=== PATIENT | male | born 1955 | race Caucasian/White ===

== ENCOUNTER 2017-03-14 20:23 | Emergency (ER) | payer OTHER ==
[2017-03-14 21:33] VITALS: BP 161/101; PULSE 97; TEMP 101.5; BMI 31.6
[2017-03-14] MEDS ORDERED: HYDROCHLOROTHIAZIDE 25 MG TABLET (FP) PO ONE (22:18)
[2017-03-14] MEDS ORDERED: LISINOPRIL 20 MG TABLET (FP) PO ONE (22:20)
[2017-03-14] MEDS ORDERED: ACETAMINOPHEN 325 MG TABLET (FP) PO ONE (22:20)
--- NOTE | 2017-03-14 22:57 | PDOC ---
History of Present Illness - General Chief Complaint: Injury Stated Complaint: ANKLE PAIN Time Seen by Provider: 03/14/17 21:54 History Source: Patient Exam Limitations: No Limitations - History of Present Illness Initial Comments: 03/14/17 22:07 Pt. is a 61 y/o male hx of HTN, opioid abuse on methadone, R ankle trauma with old pinning in 1972, who presents to the ED tonight c/o r ankle pain. Pt. states that last night he noticed his ankle swell. He denies trauma, falling. States that his like swelled up with no apparent reason. He states that hurts to bear weight. Denies numbness and tingling in the foot, weakness, fatigue, lethargy, fever, chills, nausea, vomiting and diarrhea. VS Notable for a fever of 101 F Past History - Travel Traveled outside of the country in the last 30 days: No Close contact w/someone who was outside of country & ill: No - Past Medical History Allergies/Adverse Reactions: Allergies Allergy/AdvReac Type Severity Reaction Status Date / Time codeine [Codeine] Allergy Rash Verified 01/07/14 20:32 Home Medications: Ambulatory Orders Lisinopril/Hydrochlorothiazide [Lisinopril-Hctz 20-12.5 mg Tab] 1 each PO DAILY 06/07/13 Albuterol Sulfate Inhaler - [Ventolin HFA Inhaler -] 1 - 2 inh PO Q4H #1 inhaler 03/15/17 Azithromycin [Zithromax 250mg Tablets -] 250 mg PO UTDICT #6 tab 03/15/17 Prednisone [Deltasone -] 40 mg PO DAILY #10 tablet 03/15/17 Anemia: No Asthma: No Cancer: No Cardiac Disorders: No CVA: No COPD: No Dementia: No Diabetes: No GI Disorders: No (GALLSTONES; ENLARGED WALL OF GALLBLADDER) Disorders: No HTN: Yes ( LISINOPRIL/HCTZ 20/12.5 MG DAILY) Hypercholesterolemia: No Kidney Stones: Yes (tx 40 yrs ago.) Liver Disease: No Seizures: Yes (RELATED TO DRUS, LAST IN 2010) Thyroid Disease: No - Surgical History Orthopedic Surgery: Yes (RIGHT ANKLE SX IN 1971) - Reproductive History Testicular Surgery: No - Suicide/Smoking/Psychosocial Hx Smoking Status: Yes Smoking History: Current every day smoker Have you smoked in the past 12 months: Yes Number of Cigarettes Smoked Daily: 10 Cigars Per Day: 0 Information on smoking cessation initiated: No 'Breaking Loose' booklet given: 12/13/13 Hx Alcohol Use: No Drug/Substance Use Hx: Yes Substance Use Type: Heroin, Tranquilizers Hx Substance Use Treatment: Yes (05/31 [facility]) Review of Systems - Review of Systems Able to Perform ROS?: Yes Comments:: 03/15/17 01:58 CONSTITUTIONAL: Present: Fever Absent: chills, diaphoresis, generalized weakness, malaise, loss of appetite HEENT: Absent: rhinorrhea, nasal congestion, throat pain, throat swelling, difficulty swallowing, mouth swelling, ear pain, eye pain, visual Changes CARDIOVASCULAR: Absent: chest pain, loss of consciousness, palpitations, irregular heart rate, peripheral edema RESPIRATORY: Present: cough Absent: cough, shortness of breath, dyspnea with exertion, orthopnea, wheezing, stridor, hemoptysis GASTROINTESTINAL: Absent: abdominal pain, abdominal distension, nausea, vomiting, diarrhea, constipation, melena, hematochezia GENITOURINARY: Absent: dysuria, frequency, urgency, hesitancy, hematuria, flank pain, genital pain MUSCULOSKELETAL: Present: R ankle swelling, pain Absent: arthralgia SKIN: Absent: rash, itching, pallor HEMATOLOGIC/IMMUNOLOGIC: Absent: easy bleeding, easy bruising, lymphadenopathy, frequent infections ENDOCRINE: Absent: unexplained weight gain, unexplained weight loss, heat intolerance, cold intolerance NEUROLOGIC: Absent: headache, focal weakness or paresthesias, dizziness, unsteady gait, seizure, mental status changes, bladder or bowel incontinence PSYCHIATRIC: Absent: anxiety, depression, suicidal or homicidal ideation, hallucinations. Is the patient limited [place] proficient: No *Physical Exam - Vital Signs Last Vital Signs Temp Pulse Resp BP Pulse Ox 101.5 F H 97 H 20 161/101 94 L 03/14/17 21:20 03/14/17 21:20 03/14/17 21:20 03/14/17 21:20 03/14/17 21:20 - Physical Exam Comments: 03/15/17 07:26 GENERAL: Well developed, well nourished. Awake and alert. No acute distress. HEENT: Normocephalic, atraumatic. PERRLA, EOMI. No conjunctival pallor. Sclera are non- icteric. Moist mucous membranes. Oropharynx is clear. NECK: Supple. Full ROM. No JVD. Carotid pulses 2+ and symmetric, without bruits. No thyromegaly. No lymphadenopathy. CARDIOVASCULAR: Regular rate and rhythm. No murmurs, rubs, or gallops. Distal pulses are 2+ and symmetric. PULMONARY: No evidence of respiratory distress. Lungs clear to auscultation bilaterally. No wheezing, rales or rhonchi. ABDOMINAL: Soft. Non-tender. Non-distended. No rebound or guarding. No organomegaly. Normoactive bowel sounds. MUSCULOSKELETAL Normal range of motion at all joints. No bony deformities or tenderness. No CVA tenderness. EXTREMITIES: No cyanosis. No clubbing. No edema. No calf tenderness. SKIN: Warm and dry. Normal capillary refill. No rashes. No jaundice. NEUROLOGICAL: Alert, awake, appropriate. Cranial nerves 2-12 intact. No deficits to light touch and temperature in face, upper extremities and lower extremities. No motor deficits in the in face, upper extremities and lower extremities. Normoreflexic in the upper and lower extremities. Normal speech. Toes are down- going bilaterally. Gait is normal without ataxia. PSYCHIATRIC: Cooperative. Good eye contact. Appropriate mood and affect. ED Treatment Course - LABORATORY CBC & Chemistry Diagram: 03/14/17 22:39 03/14/17 22:39 - RADIOLOGY Radiology Studies Ordered: Category Date Time Status ANKLE & FOOT-RIGHT* [RAD] Stat Radiology 03/14/17 22:21 Ordered CHEST X-RAY PORTABLE* [RAD] Stat Radiology 03/14/17 22:21 Ordered *DC/Admit/Observation/Transfer Diagnosis at time of Disposition: s/p fx of right ankle s/p surgery, Arthritis Pneumonia Qualifiers: Pneumonia type: due to unspecified organism Laterality: right Lung location: lower lobe of lung Qualified Code(s): J18.1 - Lobar pneumonia, unspecified organism - Discharge Dispostion Disposition: HOME Admit: No - Prescriptions Prescriptions: Prednisone [Deltasone -] 40 mg PO DAILY #10 tablet Albuterol Sulfate Inhaler - [Ventolin HFA Inhaler -] 1 - 2 inh PO Q4H #1 inhaler Azithromycin [Zithromax 250mg Tablets -] 250 mg PO UTDICT #6 tab - Referrals Referrals: Zane Riddle [Primary Care Provider] - 24 hours - Patient Instructions Printed Discharge Instructions: DI for Pneumonia -- Adult Additional Instructions: You have pneumonia. Please take the medications as prescribed. Drink plenty of fluids. Followup with your primary care doctor on Thursday. You also have arthritis in your R foot. Elevate the foot to reduce the swelling. Wear a compression stocking and ice the area as well. You may take ibuprofen or tylenol as needed for pain/fever. Return to the ED if you have worsening cough, lightheadedness, fevers, shortness of breath, or any changes in your symptoms.
[2017-03-14] MEDS ORDERED: ACETAMINOPHEN 325 MG TABLET (FP) ONE (23:11)
[2017-03-14] MEDS ORDERED: HYDROCHLOROTHIAZIDE 25 MG TABLET (FP) ONE (23:11)
[2017-03-14] MEDS ORDERED: LISINOPRIL 20 MG TABLET (FP) ONE (23:12)
[2017-03-14 23:51] LABS: BASOPHIL 0.5 % (0-2.0); EOSINOPHIL 0.8 % (0-4.5); MCH 28.3 pg (25.7-33.7); MCHC 33.1 g/dl (32.0-35.9); MEAN CELL VOLUME 85.5 fl (80-96); MEAN PLT VOLUME 8.7 fl (7.5-11.1); NEUTROPHILS 67.7 % (42.8-82.8); PLATELET COUNT 166 K/MM3 (134-434); RDW 13.9 % (11.9-15.9); WHITE BLOOD COUNT 8.2 K/mm3 (4.0-10.0)
[2017-03-14 23:55] LABS: URINE APPEARANCE CLEAR; URINE BILIRUBIN NEGATIVE (NEGATIVE); URINE BLOOD NEGATIVE (NEGATIVE); URINE COLOR LTYELLOW; URINE GLUCOSE (UA) NEGATIVE (NEGATIVE); URINE KETONE NEGATIVE (NEGATIVE); URINE NITRITE NEGATIVE (NEGATIVE); URINE PROTEIN NEGATIVE (NEGATIVE); URINE UROBILINOGEN NEGATIVE mg/dL (0.2-1.0)
[2017-03-15 00:10] LABS: INR 1.19 (0.82-1.09); PROTHROMBIN TIME (PATIENT) 13.5 SEC (9.98-11.88)
[2017-03-15 00:19] LABS: ALBUMIN 3.7 g/dl (3.4-5.0); ALK PHOS 72 U/L (45-117); ANION GAP 6 (8-16); BILIRUBIN,TOTAL 0.6 mg/dL (0.2-1.0); CALCIUM 8.6 mg/dL (8.5-10.1); CO2 31 mmol/L (21-32); CREATININE 0.8 mg/dL (0.7-1.3); GLUCOSE,RANDOM 96 mg/dL (74-106); SGOT/AST 20 U/L (15-37); SGPT/ALT 24 U/L (12-78); TOT PROT 7.4 g/dl (6.4-8.2)
[2017-03-15] MEDS ORDERED: ALBUTEROL SO4 2.5/IPRATROPIUM 0.5 INH SOL 3 ML VIAL.NEB. NEB ONE ×2 (01:05→02:21)
[2017-03-15] MEDS ORDERED: predniSONE 20 MG TABLET (UD) PO ONE (01:05)
--- NOTE | 2017-03-15 01:38 | PDOC ---
*Physical Exam - Vital Signs Last Vital Signs Temp Pulse Resp BP Pulse Ox 101.5 F H 97 H 20 161/101 94 L 03/14/17 21:20 03/14/17 21:20 03/14/17 21:20 03/14/17 21:20 03/14/17 21:20 Heart Score/ECG Review #1 ECG reviewed & interpreted by me at: 03:30 03/15/17 03:33 NSR 71, no std/hammad, T wave flat avF, QTC 432 msec ED Treatment Course - LABORATORY CBC & Chemistry Diagram: 03/14/17 22:39 03/14/17 22:39 - ADDITIONAL ORDERS Additional order review: Laboratory Results 03/14/17 03/14/17 03/14/17 22:39 22:39 22:39 PT with INR 13.50 H INR 1.19 H Sodium 139 Potassium 4.6 Chloride 102 Carbon Dioxide 31 Anion Gap 6 L BUN 12 D Creatinine 0.8 D Creat Clearance w eGFR > 60 Random Glucose 96 Calcium 8.6 Total Bilirubin 0.6 AST 20 ALT 24 Alkaline Phosphatase 72 Total Protein 7.4 Albumin 3.7 Urine Color Ltyellow Urine Appearance Clear Urine pH 7.0 D Urine Protein Negative Urine Glucose (UA) Negative Urine Ketones Negative Urine Blood Negative Urine Nitrite Negative Urine Bilirubin Negative Urine Urobilinogen Negative 03/14/17 22:39 RBC 5.16 MCV 85.5 MCHC 33.1 RDW 13.9 MPV 8.7 Neutrophils % 67.7 Lymphocytes % 21.7 D Monocytes % 9.3 Eosinophils % 0.8 Basophils % 0.5 - Medications Given in the ED: ED Medications Discontinued Medications Generic Name Dose Route Start Last Admin Trade Name Freq PRN Reason Stop Dose Admin Acetaminophen 650 mg 03/14/17 22:20 03/14/17 23:13 Tylenol - PO 03/14/17 22:21 650 mg ONCE ONE Administration Hydrochlorothiazide 25 mg 03/14/17 22:18 03/14/17 23:13 Hctz - PO 03/14/17 22:19 25 mg ONCE ONE Administration Lisinopril 20 mg 03/14/17 22:20 03/14/17 23:13 Prinivil PO 03/14/17 22:21 20 mg ONCE ONE Administration Medical Decision Making - Medical Decision Making 03/15/17 02:18 Pt seen by the Advanced Practice Provider under my direct supervision Pt interviewed and examined Ancillary studies reviewed I agree with plan as outlined by the Advanced Practice Provider CHARLIE Huertas Vital Signs Temp Pulse Resp BP Pulse Ox 101.5 F H 97 H 20 161/101 94 L 03/14/17 21:20 03/14/17 21:20 03/14/17 21:20 03/14/17 21:20 03/14/17 21:20 61-year-old male with history of hypertension, significant smoking history with suspicion of potential emphysema, history of right ankle repair several take its ago presents with right ankle pain and swelling. No calf pain or knee pain. Patient was in some he noted to have fever, wheezing and coughing here in the ED. Denies chest pain or shortness of breath. I have low suspicion of this patient having DVT. He finds isolated right ankle. The right ankle x-ray demonstrates significant arthritic changes with swelling but no fractures. This could potentially be secondary arthritis changes. We'll need supportive care and elevation and follow-up with orthopedist. We'll defer on duplex at this time. Patient also noted have fever, wheezing and cough discerning for COPD exacerbation with an upper strep infection. Portal\ble chest x-ray demonstrates early potential infiltrate. We'll check an EKG given that the patient is on methadone for QTc. If the QTc is normal, we'll prescribe azithromycin and discharge patient with steroids and nebulizers.
[2017-03-15] MEDS ORDERED: predniSONE 20 MG TABLET (UD) ONE (02:21)
--- NOTE | 2017-03-15 09:05 | EKG ---
Test Reason : Blood Pressure : / mmHG Vent. Rate : 071 BPM Atrial Rate : 071 BPM P-R Int : 168 ms QRS Dur : 084 ms QT Int : 398 ms P-R-T Axes : 048 -23 020 degrees QTc Int : 432 ms NORMAL SINUS RHYTHM NORMAL ECG WHEN COMPARED WITH ECG OF 08-JAN-2014 02:14, NO SIGNIFICANT CHANGE WAS FOUND Confirmed by NICOLETTE CHEEMA MD ([id number]) on 03/15/2017 9:04:41 AM Referred By: Confirmed By:NICOLETTE CHEEMA MD
[2017-03-15 14:56] LABS: URINE LEUK ESTERASE Negative (NEGATIVE)
== END 2017-03-15 03:47 | disposition home or self-care (01) ==
LOC: JER 20:23
PROC: 3E0F7GC Introduction of Other Therapeutic Substance into Respiratory Tract, Via Natural or Artificial Opening (ICD-10-PCS; principal; 2017-03-14)
DX: J18.1 Lobar pneumonia, unspecified organism (principal); M13.871 Other specified arthritis, right ankle and foot; I10 Essential (primary) hypertension; F11.20 Opioid dependence, uncomplicated; Z86.69 Personal history of other diseases of the nervous system and sense organs; F17.210 Nicotine dependence, cigarettes, uncomplicated
CPT/HCPCS: 36415; 71010-TC; 73610-TC-RT; 73630-TC-RT; 80053; 81003; 84550; 85025; 85610; 87086; 93005; 93010; 94640; 99281-25

== ENCOUNTER 2019-12-17 10:01 | Inpatient (IN) | payer OTHER ==
[2019-12-17] MEDS ORDERED: ACETAMINOPHEN 1000 MG/100 ML VIAL (NON FORMULARY) IVPB ONE (10:23)
[2019-12-17] MEDS ORDERED: FAMOTIDINE 20 MG/50 ML IVPB 20 MG/50 ML MG IVPB ONE ×2 (10:23→11:02)
[2019-12-17] MEDS ORDERED: SODIUM CHLORIDE 1,000 ML IV STA (10:23)
[2019-12-17] MEDS ORDERED: ONDANSETRON 4 MG/2 ML VIAL IVPUSH ONE (10:24)
--- NOTE | 2019-12-17 10:53 | PDOC ---
History of Present Illness - General Chief Complaint: Pain Stated Complaint: REVISIT Time Seen by Provider: 12/17/19 10:19 History Source: Patient Exam Limitations: No Limitations - History of Present Illness Initial Comments: Charlie is a 64 yo M w a hx of PUD, COPD, renal calculi and gallstones. Seen in ER yesterday for similar symptoms, CT ordered which found pericholecystic fluid and was suspicious for cholecystitis. Patient had to AMA yesterday. Here today with worsening abdominal pain. Much worse over past weak. ON and off for the past 4 years. Describes it as being constant, sharp, rates it as 7/10, located in the RUQ and epigastric regions. Denies any radiation to flank or back. States taking mylanta and PUD drugs help with pain but only help for 30 minutes at which point the pain returns. Endorses nausea but denies emesis. Denies SOB, fever, chills, urinary or bowel symptoms. PCP: Zane Riddle PSH: Right ankle surgery Social Hx: Smokes 6 cigarettes daily, denies alcohol or illicit drugs Allergies: Codeine Past History - Medical History Allergies/Adverse Reactions: Allergies Allergy/AdvReac Type Severity Reaction Status Date / Time codeine [Codeine] Allergy Rash Verified 12/17/19 10:16 Home Medications: Ambulatory Orders Lisinopril [Prinivil] 10 mg PO DAILY 12/16/19 Omeprazole 20 mg PO BID 12/16/19 Methadone [Dolophine -] 10 mg PO DAILY PRN 12/17/19 Anemia: No Asthma: No Cancer: No Cardiac Disorders: No CVA: No COPD: No Dementia: No Diabetes: No GI Disorders: No (GALLSTONES; ENLARGED WALL OF GALLBLADDER) Disorders: No HTN: Yes ( LISINOPRIL/HCTZ 20/12.5 MG DAILY) Hypercholesterolemia: No Kidney Stones: Yes (tx 40 yrs ago.) Liver Disease: No Seizures: Yes (RELATED TO DRUS, LAST IN 2010) Thyroid Disease: No - Surgical History Orthopedic Surgery: Yes (RIGHT ANKLE SX IN 1971) - Reproductive History Testicular Surgery: No - Psycho-Social/Smoking History Smoking Status: Yes Smoking History: Current every day smoker Have you smoked in the past 12 months: Yes Number of Cigarettes Smoked Daily: 20 Cigars Per Day: 0 Information on smoking cessation initiated: Yes 'Breaking Loose' booklet given: 12/13/13 - Substance Abuse Hx (Audit-C & DAST Scrn) How often the patient has a drink containing alcohol: Never Score: In Men: 4 or > Positive; In Women: 3 or > Positive: 0 Screen Result (Pos requires Nsg. Audit-10AR): Negative In the last yr the pt used illegal drug/Rx for NonMed reason: No Score: Yes response is considered Positive: 0 Screen Result (Positive result requires Nsg. DAST-10): Negative Review of Systems - Review of Systems Able to Perform ROS?: Yes Comments:: CONSTITUTIONAL: Absent: fever, no fatigue, chills EYES: Absent: visual changes ENT: Absent: ear pain, no sore throat CARDIOVASCULAR: Absent: chest pain, no palpitations RESPIRATORY: Absent: cough, no SOB GI: Present: Abdominal pain, nausea Absent: no vomiting, no constipation, no diarrhea GENITOURINARY: Absent: dysuria, no frequency, no hematuria MUSKULOSKELETAL: Absent: back pain, no arthralgia, no myalgia SKIN: Absent: rash NEURO: Absent: headache *Physical Exam - Vital Signs Last Vital Signs Temp Pulse Resp BP Pulse Ox 97.4 F L 58 L 18 92/53 L 100 12/17/19 10:16 12/17/19 10:16 12/17/19 10:16 12/17/19 10:16 12/17/19 10:16 - Physical Exam GENERAL: Well-appearing, well-nourished. No apparent distress. HEENT: Normocephalic, atraumatic. PERRL, EOM intact. CARDIOVASCULAR: Normal S1, S2. Regular rate and rhythm. PULMONARY: No evidence of respiratory distress. Lungs clear to auscultation bilaterally. No wheezing, rales or rhonchi. ABDOMEN: There is reproducible epigastric and RUQ abdominal TTP. Overall, the abdomen is soft, non-distended, and has normal bowel sounds. The abdomen is not peritoneal, no rigidity, no rebound, and no guarding. EXTREMITIES: Normal ROM in all four extremities. No gross deformities. SKIN: Warm, dry. No rash NEUROLOGICAL: No focal neurological deficits. Procedures - Bedside Ultrasound Bedside Ultrasound: Gallbladder Remarks: 12/17/19 11:27 There are multiple large stones at the GB neck with shadowing. There is also wall thickening at 5.3mmm and edema as well as pericholecystic fluid. CBD not dilated at 4.7mm Impression: cholelithiasis with Cholecystitis. No evidence of choledocolithiasis or cholangitis. ED Treatment Course - LABORATORY CBC & Chemistry Diagram: 12/17/19 08:11 12/17/19 08:11 - RADIOLOGY Radiology Studies Ordered: Category Date Time Status ABDOMEN US -LIMITED [US] Stat Ultrasound 12/17/19 10:24 Ordered Medical Decision Making - Medical Decision Making Ray is a 64 yo M w a hx of PUD, COPD, renal calculi and gallstones. Seen in ER yesterday for similar symptoms, CT ordered which found pericholecystic fluid and was suspicious for cholecystitis. Patient had to AMA yesterday. Here today with worsening abdominal pain. Much worse over past weak. ON and off for the past 4 years. Describes it as being constant, sharp, rates it as 7/10, located in the RUQ and epigastric regions. Denies any radiation to flank or back. States taking mylanta and PUD drugs help with pain but only help for 30 minutes at which point the pain returns. Endorses nausea but denies emesis. Denies SOB, fever, chills, urinary or bowel symptoms. Vital Signs Temp Pulse Resp BP Pulse Ox 97.4 F L 58 L 18 100/67 100 12/17/19 10:16 12/17/19 10:16 12/17/19 10:16 12/17/19 11:10 12/17/19 10:16 DDx IBNLT: Gallstones, cholecystitis, electrolyte/metabolic disturbance, less likely choledocolithiasis, ascending cholangitis, or peritonitis Plan: Labs, US, surgical consult, Abx, NPO, iv hydration, admission to med/surg Labs: Mild hepatitis Formal US: Cholelithiasis with borderline wall thickening Surgical consult: Spoke with Dr. Montiel who is aware of patient, will follow. Dispo: Med/surg Discharge - Discharge Information Problems reviewed: Yes Clinical Impression/Diagnosis: Gallstones, Cholecystitis Condition: Stable - Admission Yes - Follow up/Referral - Patient Discharge Instructions - Post Discharge Activity
[2019-12-17] MEDS ORDERED: ACETAMINOPHEN INJECTION 100 ML IVPB ONE (11:01)
[2019-12-17 11:19] LABS: BASO % 1.1 % (0-2.0); EOS % 7.6 % (0-4.5); HEMATOCRIT 48.5 % (35.4-49); HEMOGLOBIN 16.2 GM/dL (11.7-16.9); LYMPH % 32.9 % (8-40); MCH 28.9 pg (25.7-33.7); MCHC 33.3 g/dl (32.0-35.9); MEAN CELL VOLUME 86.9 fl (80-96); MONO % 8.9 % (3.8-10.2); NEUT % 49.5 % (42.8-82.8); PLATELET COUNT 154 K/MM3 (134-434); RBC 5.59 M/mm3 (4.00-5.60); RDW 15.4 % (11.9-15.9); WHITE BLOOD COUNT 6.2 K/mm3 (4.0-10.0)
[2019-12-17] MEDS ORDERED: CEFTRIAXONE 1,000 MG in DEXTROSE 5%-WATER - 50 ML IVPB ONE (11:21)
[2019-12-17 11:26] LABS: INR 1.09 (0.83-1.09); PROTHROMBIN TIME (PATIENT) 12.9 SEC (9.7-13.0)
[2019-12-17 11:29] LABS: ACTIVATED PTT 37.8 SECONDS (25.2-36.5)
[2019-12-17] MEDS ORDERED: LACTATED RINGERS SOLUTION 1,000 ML/1,000 ML INFUS.BAG IV SCH (11:30)
[2019-12-17] MEDS ORDERED: CEFTRIAXONE 1 GM/50 ML BAG ONE (11:31)
--- NOTE | 2019-12-17 12:04 | PDOC ---
Documentation entered by Gulshan Lazo SCRIBE, acting as scribe for Anderson Kelly MD. Anderson Kelly MD: This documentation has been prepared by the Violet dumont Aaron, SCRIBE, under my direction and personally reviewed by me in its entirety. I confirm that the documentation accurately reflects all work, treatment, procedures, and medical decision making performed by me. Attending Attestation - Resident Resident Name: Rakan Mcmillan - ED Attending Attestation I have performed the following: I have examined & evaluated the patient, The case was reviewed & discussed with the resident, I agree w/resident's findings & plan, Exceptions are as noted - HPI HPI: 12/17/19 11:32 The patient is a 64 year old male with a significant PMH of PUD, COPD, renal calculi, and gallstones who presents to the emergency department for abdominal pain. He states the pain has been on and off the last four years but recently worsened. Patient describes the pain as constant, sharp, 7/10 in the RUQ and epigastric regions. Patient takes mylanta and says it helps with pain but only for half an hour. Patient claims pain is not worsened by eating. Patient endorses nausea without vomiting. Patient denies radiation. Denies SOB, fever, chills, urinary or bowel symptoms. Pt was seen here yesterday and had CT that showed likely cholecystitis. However, pt left AMA. Allergies: codeine Social Hx: Everyday smoker PCP: Zane Riddle - Physicial Exam PE: 12/17/19 12:08 See resident exam - Medical Decision Making 12/17/19 12:08 64 M with abdominal pain. CT yesterday suggests cholecystitis. - Labs - RUQ sono - Surgery consult Discharge - Discharge Information Problems reviewed: Yes Clinical Impression/Diagnosis: Gallstones, Cholecystitis Condition: Stable Disposition: HOME - Follow up/Referral - Patient Discharge Instructions - Post Discharge Activity
[2019-12-17 12:23] LABS: ALBUMIN 3.8 g/dl (3.4-5.0); ALK PHOS 115 U/L (45-117); ANION GAP 4 MMOL/L (8-16); BILIRUBIN,DIRECT 0.2 mg/dL (0.0-0.2); BILIRUBIN,TOTAL 0.5 mg/dL (0.2-1); BLOOD UREA NITROGEN 11.2 mg/dL (7-18); CALCIUM 9.3 mg/dL (8.5-10.1); CHLORIDE 104 mmol/L (98-107); CO2 30 mmol/L (21-32); GLUCOSE,RANDOM 87 mg/dL (74-106); LIPASE 120 U/L (73-393); MAGNESIUM 2.2 mg/dL (1.8-2.4); PHOSPHOROUS 3.2 mg/dL (2.5-4.9); POTASSIUM 4.1 mmol/L (3.5-5.1); SGOT/AST 62 U/L (15-37); SGPT/ALT 77 U/L (13-61); SODIUM 138 mmol/L (136-145); TOT PROT 7.5 g/dl (6.4-8.2)
--- NOTE | 2019-12-17 12:49 | HP ---
CHIEF COMPLAINT: Abdominal tenderness PCP: Dr. 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 Patient was here yesteryda 12/16/2019 due to same pain and was found to have cholecystitis as a cause of his abdominal pain. He left AMA at that time however due to personal affairs that he could not reschedule. Patient came back today to be admitted due to his continued abdominal pain and cholecystitis. Patient reports this started about 3 days prior with nausea and RUQ sharp abdominal pain. Pt currently has the same abdominal pain which has continued without emesis. Pt reports having intermittent nausea, which is increased with food. Patient denies having this specific pain previously. He denies any fever/chills, shortness of breath, chest pain, dysuria, polyuria, diarrhea, current vomiting. PAST MEDICAL HISTORY: As above PAST SURGICAL HISTORY: None prior Social History: Smokin/4-1ppd for over 20 years Alcohol: None Drugs: None Family History: Noncontributory Allergies codeine [Codeine] Allergy (Verified 12/17/19 10:16) Rash pt states he also has seizures. HOME MEDICATIONS: Home Medications Medication Instructions Recorded Lisinopril [Prinivil] 10 mg PO DAILY 12/16/19 Omeprazole 20 mg PO BID 12/16/19 Methadone [Dolophine -] 10 mg PO DAILY PRN 12/17/19 REVIEW OF SYSTEMS As per HPI PHYSICAL EXAMINATION Vital Signs - 24 hr 12/17/19 12/17/19 12/17/19 10:16 11:10 11:37 Temperature 97.4 F L Pulse Rate 58 L Respiratory 18 18 Rate Blood Pressure 92/53 L Blood Pressure 100/67 [Right Arm] O2 Sat by Pulse 100 100 Oximetry (%) GENERAL: Awake, alert, and fully oriented, in no acute distress. HEENT: NC/AT, VALENTIN, EOMI, MMM NECK: No JVD LUNGS: CTA bilaterally. No wheezes, and no crackles. No accessory muscle use. HEART: RRR, normal S1 and S2 without murmur ABDOMEN: Soft, minimal epigastric tenderness, nondistendend, normoactive bowel sounds, no guarding, no rebound. No hepatomegaly EXTREMITIES: 2+ DP pulses, warm, well-perfused. No calf tenderness. No peripheral edema. PSYCHIATRIC: Cooperative. Good eye contact. Appropriate mood and affect. SKIN: Warm, dry, no rashes or lesions noted, no jaundice Laboratory Results - last 24 hr 12/17/19 12/17/19 12/17/19 08:11 08:11 08:11 WBC 6.2 RBC 5.59 Hgb 16.2 Hct 48.5 MCV 86.9 MCH 28.9 MCHC 33.3 RDW 15.4 Plt Count 154 MPV 10.0 Absolute Neuts (auto) 3.0 Neutrophils % 49.5 D Lymphocytes % 32.9 D Monocytes % 8.9 Eosinophils % 7.6 H D Basophils % 1.1 Nucleated RBC % 0 PT with INR 12.90 INR 1.09 PTT (Actin FS) 37.8 H Sodium 138 Potassium 4.1 Chloride 104 Carbon Dioxide 30 Anion Gap 4 L BUN 11.2 Creatinine 1.0 Est GFR (CKD-EPI)AfAm 91.78 Est GFR (CKD-EPI)NonAf 79.19 Random Glucose 87 Lactic Acid Calcium 9.3 Phosphorus 3.2 Magnesium 2.2 Total Bilirubin 0.5 Direct Bilirubin 0.2 AST 62 H ALT 77 H Alkaline Phosphatase 115 Creatine Kinase 84 Troponin I < 0.02 Total Protein 7.5 Albumin 3.8 Lipase 120 12/17/19 08:11 WBC RBC Hgb Hct MCV MCH MCHC RDW Plt Count MPV Absolute Neuts (auto) Neutrophils % Lymphocytes % Monocytes % Eosinophils % Basophils % Nucleated RBC % PT with INR INR PTT (Actin FS) Sodium Potassium Chloride Carbon Dioxide Anion Gap BUN Creatinine Est GFR (CKD-EPI)AfAm Est GFR (CKD-EPI)NonAf Random Glucose Lactic Acid 1.3 Calcium Phosphorus Magnesium Total Bilirubin Direct Bilirubin AST ALT Alkaline Phosphatase Creatine Kinase Troponin I Total Protein Albumin Lipase ASSESSMENT/PLAN: Acute Cholecystitis Transaminitis related to above History of PUD Opioid use disorder on methadone History of Hypertension --Surgery on board consulted by ED: --Will medically manage for now and ordered HIDA scan --Potential lap cholecystectomy prior to discharge --Zosyn 3.375gm q8h initiated --IV hydration: NS at 100cc/hr --NPO for now --Tylenol IV 1gm to be given with close monitoring of LFTs --Monitor TBili and Alk phos for worsening obstruction --Type and screen for anticipated surgery --Protonix 40mg qdaily IVP --Holding home Lisinopril at present time due to normotension in setting of acute cholecysitis; can restart as needed --Will need to confirm methadone dose with his clinic before restarting DVT PPX: Heparin SQ; will need to hold in afternoon on 12/18/2019 if surgery is planned Dispo: Admit med-surg Jame Ya DO - IM Visit type - Emergency Visit Emergency Visit: Yes ED Registration Date: 12/17/19 Care time: The patient presented to the Emergency Department on the above date and was hospitalized for further evaluation of their emergent condition. - New Patient This patient is new to me today: Yes Date on this admission: 12/17/19 - Critical Care Critical Care patient: No
[2019-12-17] MEDS ORDERED: ACETAMINOPHEN 1000 MG/100 ML VIAL (NON FORMULARY) IVPB PRN (13:10)
[2019-12-17] MEDS ORDERED: ONDANSETRON 4 MG/2 ML VIAL IVPUSH PRN (13:41)
[2019-12-17] MEDS: SODIUM CHLORIDE 1,000 ML IV SCH ×2 (13:47→17:20)
--- NOTE | 2019-12-17 15:42 | PN ---
Progress Note (short form) - Note Progress Note: surgery 64m on methadone, 1 month history of ruq abd pain, left hospital [facility] for presumed cholecystitis, presents today wanting gb surgery. u/s shows gallstones without findings of cholecystitis. labs normal. recommend hida. treat with abx until hida done.
[2019-12-17] MEDS ORDERED: PIPERACILLIN/TAZOBACTAM 3.375 GM VIAL IVPB ONE (17:15)
[2019-12-17] MEDS ORDERED: DEXTROSE 5%-WATER - 50 ML IVPB ONE (17:15)
[2019-12-17] MEDS: PIPERACILLIN/TAZOB 3.375 GM 3.375 GM in DEXTROSE 5%-WATER - 50 ML IVPB SCH (17:20)
[2019-12-17] MEDS ORDERED: PIPERACILLIN/TAZOB 3.375 GM 3.375 GM in DEXTROSE 5%-WATER - 50 ML IVPB SCH (18:00)
[2019-12-17] MEDS ORDERED: SODIUM CHLORIDE 500 ML IV STA (18:14)
[2019-12-17 18:50] VITALS: BMI 32.1
[2019-12-17] MEDS: HEPARIN NA (PORCINE) 5,000 UNITS/ML 1ML VIAL SQ SCH (21:06)
[2019-12-18] MEDS: SODIUM CHLORIDE 1,000 ML IV SCH ×2 (00:33→13:00)
[2019-12-18] MEDS ORDERED: PIPERACILLIN/TAZOBACTAM 3.375 GM VIAL IVPB ONE ×3 (01:08→16:53)
[2019-12-18] MEDS ORDERED: DEXTROSE 5%-WATER - 50 ML IVPB ONE ×3 (01:09→16:54)
[2019-12-18] MEDS: PIPERACILLIN/TAZOB 3.375 GM 3.375 GM in DEXTROSE 5%-WATER - 50 ML IVPB SCH ×3 (01:10→18:18)
[2019-12-18 01:12] LABS: EPI CELLS 3 /uL (0-25.1); HYALINE CASTS 0 /uL (0-3.1); PH,URINE 5.5 (5.0-8.0); URINE APPEARANCE CLEAR; URINE BACTERIA 6 /uL (0-1359); URINE BILIRUBIN NEGATIVE (NEGATIVE); URINE COLOR YELLOW; URINE GLUCOSE (UA) NEGATIVE (NEGATIVE); URINE KETONE NEGATIVE (NEGATIVE); URINE LEUK ESTERASE TRACE (NEGATIVE); URINE NITRITE NEGATIVE (NEGATIVE); URINE PROTEIN NEGATIVE (NEGATIVE); URINE RBC 10 /uL (0-23.9); URINE UROBILINOGEN 0.2 mg/dL (0.2-1.0); URINE WBC 9 /uL (0-25.8)
[2019-12-18 09:15] LABS: HEMATOCRIT 44.4 % (35.4-49); HEMOGLOBIN 14.6 GM/dL (11.7-16.9); MCH 28.7 pg (25.7-33.7); MCHC 32.9 g/dl (32.0-35.9); MEAN CELL VOLUME 87.3 fl (80-96); MEAN PLT VOLUME 9.6 fl (7.5-11.1); PLATELET COUNT 121 K/MM3 (134-434); RBC 5.09 M/mm3 (4.00-5.60); RDW 15.5 % (11.9-15.9); WHITE BLOOD COUNT 4.9 K/mm3 (4.0-10.0)
[2019-12-18 09:57] LABS: ALBUMIN 3.1 g/dl (3.4-5.0); BILIRUBIN,TOTAL 0.7 mg/dL (0.2-1); BLOOD UREA NITROGEN 10.2 mg/dL (7-18); CALCIUM 8.6 mg/dL (8.5-10.1); CREATININE 0.8 mg/dL (0.55-1.3); MAGNESIUM 2.2 mg/dL (1.8-2.4); POTASSIUM 4.1 mmol/L (3.5-5.1); TOT PROT 5.9 g/dl (6.4-8.2)
[2019-12-18] MEDS: HEPARIN NA (PORCINE) 5,000 UNITS/ML 1ML VIAL SQ SCH (09:59)
[2019-12-18] MEDS ORDERED: PANTOPRAZOLE SODIUM 40 MG VIAL IVPUSH SCH (10:00)
[2019-12-18] MEDS ORDERED: METHADONE (DETOX) 10 MG, METHADONE (DETOX) 5 MG PO ONE (10:26)
[2019-12-18] MEDS ORDERED: METHADONE HCL 5 MG TABLET PO ONE (10:30)
[2019-12-18] MEDS ORDERED: METHADONE HCL 10 MG TABLET PO ONE ×2 (10:31)
[2019-12-18] MEDS ORDERED: METHADONE HCL 10 MG TABLET (FOR DETOX USE ONLY) PO SCH (12:00)
--- NOTE | 2019-12-18 16:03 | PN ---
Physical Exam: SUBJECTIVE: Patient seen and examined 12/18/19: Feels better now , no abd pain, just ate a fullmeal; deneis any nausea or vomiting Was seen by Surgery and told he could go home so now wants to go home Said thought it may be more his pud pain and will need follow up with gi as outpt OBJECTIVE: Vital Signs Period Temp Pulse Resp BP Sys/Meehan Pulse Ox Last 24 Hr 97.6 F-98.6 F 40-83 18-18 91-127/47-90 95-98 GENERAL: The patient is awake, alert, and fully oriented, in no acute distress. HEAD: Normal with no signs of trauma. EYES: extraocular movements intact, sclera anicteric, conjunctiva clear. No ptosis. ENT: Ears normal, nares patent, oropharynx clear without exudates, moist mucous membranes. NECK: Trachea midline, full range of motion, supple. LUNGS: Breath sounds equal, clear to auscultation bilaterally, no wheezes, no crackles, no accessory muscle use. HEART: Regular rate and rhythm, S1, S2 without murmur, rub or gallop. ABDOMEN: Soft, nontender, nondistended, normoactive bowel sounds, no guarding, no rebound, no hepatosplenomegaly, no masses. NO EPID OR RUQ TENDERNESS EXTREMITIES: 2+ pulses, warm, well-perfused, no edema. NEUROLOGICAL: Cranial nerves II through XII grossly intact. Normal speech, gait not observed. PSYCH: Normal mood, normal affect. SKIN: Warm, dry, normal turgor, no rashes or lesions noted Laboratory Results - last 24 hr 12/17/19 12/18/19 12/18/19 11:45 00:42 04:15 WBC RBC Hgb Hct MCV MCH MCHC RDW Plt Count MPV Sodium Potassium Chloride Carbon Dioxide Anion Gap BUN Creatinine Est GFR (CKD-EPI)AfAm Est GFR (CKD-EPI)NonAf Random Glucose Calcium Magnesium Total Bilirubin AST ALT Alkaline Phosphatase Troponin I < 0.02 Total Protein Albumin Urine Color Yellow Urine Appearance Clear Urine pH 5.5 D Ur Specific [place] 1.010 Urine Protein Negative Urine Glucose (UA) Negative Urine Ketones Negative Urine Blood Negative Urine Nitrite Negative Urine Bilirubin Negative Urine Urobilinogen 0.2 Ur Leukocyte Esterase Trace Urine WBC (Auto) 9 Urine RBC (Auto) 10 Urine Casts (Auto) 0 U Epithel Cells (Auto) 3 Urine Bacteria (Auto) 6 COVID-19 ([facility]) Not detected 12/18/19 12/18/19 08:35 08:35 WBC 4.9 RBC 5.09 Hgb 14.6 Hct 44.4 MCV 87.3 MCH 28.7 MCHC 32.9 RDW 15.5 Plt Count 121 L D MPV 9.6 Sodium 142 Potassium 4.1 Chloride 109 H Carbon Dioxide 26 Anion Gap 7 L BUN 10.2 Creatinine 0.8 Est GFR (CKD-EPI)AfAm 109.42 Est GFR (CKD-EPI)NonAf 94.41 Random Glucose 85 Calcium 8.6 Magnesium 2.2 Total Bilirubin 0.7 AST 45 H ALT 61 Alkaline Phosphatase 84 Troponin I Total Protein 5.9 L Albumin 3.1 L Urine Color Urine Appearance Urine pH Ur Specific [place] Urine Protein Urine Glucose (UA) Urine Ketones Urine Blood Urine Nitrite Urine Bilirubin Urine Urobilinogen Ur Leukocyte Esterase Urine WBC (Auto) Urine RBC (Auto) Urine Casts (Auto) U Epithel Cells (Auto) Urine Bacteria (Auto) COVID-19 ([facility]) Active Medications Generic Name Dose Route Start Last Admin Trade Name Freq PRN Reason Stop Dose Admin Piperacillin Sod/Tazobactam 50 mls @ 100 mls/hr 12/17/19 18:00 Sod 3.375 gm/ Dextrose IVPB Q8H-IV GAIL Protocol Piperacillin Sod/Tazobactam 50 mls @ 100 mls/hr 12/17/19 18:00 12/18/19 10:00 Sod 3.375 gm/ Dextrose IVPB 12/18/19 18:29 100 mls/hr Q8H-IV GAIL Administration Protocol Sodium Chloride 1,000 mls @ 100 mls/hr 12/17/19 13:15 12/18/19 00:33 Normal Saline - IV 100 mls/hr ASDIR GAIL Administration Methadone HCl 10 mg 12/18/19 12:00 Dolophine - PO 12/19/19 10:01 DAILY GAIL Ondansetron HCl 4 mg 12/17/19 13:41 Zofran Injection IVPUSH Q6H PRN NAUSEA AND/OR VOMITING Pantoprazole Sodium 40 mg 12/18/19 10:00 12/18/19 10:00 Protonix Iv IVPUSH 40 mg DAILY GAIL Administration ASSESSMENT/PLAN: 64 y/o male with hx of pud, opiod use d/o, htn admitted with abd pain *abd pain - thought to be due to acute cholecystitis but may also ne his pud seen by surgery and surgery recommends discharging pt home as no pain currently follow up with gi as outpt transaminities improved Will DC on augmentin Cont protonix Cont methadone and outpt follow up in methadone clinic *htn - restart lisinopril upon dc dispo - dc home as per surgery recommendations Problem List - Problems (1) Epigastric pain Code(s): R10.13 - EPIGASTRIC PAIN Visit type - Emergency Visit Emergency Visit: Yes ED Registration Date: 12/17/19 Care time: The patient presented to the Emergency Department on the above date and was hospitalized for further evaluation of their emergent condition. - New Patient This patient is new to me today: Yes Date on this admission: 12/18/19 - Critical Care Critical Care patient: No - Discharge Referral Referred to [facility] Med P.C.: No
--- NOTE | 2019-12-18 18:20 | DS ---
Physical Exam: SUBJECTIVE: Patient seen and examined OBJECTIVE: Vital Signs Period Temp Pulse Resp BP Sys/Meehan Pulse Ox Last 24 Hr 97.6 F-98.6 F 40-83 18-18 96-127/47-90 95-98 PHYSICAL EXAM GENERAL: The patient is awake, alert, and fully oriented, in no acute distress. HEAD: Normal with no signs of trauma. EYES: PERRL, extraocular movements intact, sclera anicteric, conjunctiva clear. ENT: Ears normal, nares patent, oropharynx clear without exudates, moist mucous membranes. NECK: Trachea midline, full range of motion, supple. LUNGS: Breath sounds equal, clear to auscultation bilaterally, no wheezes, no crackles, no accessory muscle use. HEART: Regular rate and rhythm, S1, S2 without murmur, rub or gallop. ABDOMEN: Soft, nontender, nondistended, normoactive bowel sounds, no guarding, no rebound, no hepatosplenomegaly, no masses. EXTREMITIES: 2+ pulses, warm, well-perfused, no edema. NEUROLOGICAL: Cranial nerves II through XII grossly intact. Normal speech, gait not observed. PSYCH: Normal mood, normal affect. SKIN: Warm, dry, normal turgor, no rashes or lesions noted. LABS Laboratory Results - last 24 hr 12/17/19 12/18/19 12/18/19 11:45 00:42 04:15 WBC RBC Hgb Hct MCV MCH MCHC RDW Plt Count MPV Sodium Potassium Chloride Carbon Dioxide Anion Gap BUN Creatinine Est GFR (CKD-EPI)AfAm Est GFR (CKD-EPI)NonAf Random Glucose Calcium Magnesium Total Bilirubin AST ALT Alkaline Phosphatase Troponin I < 0.02 Total Protein Albumin Urine Color Yellow Urine Appearance Clear Urine pH 5.5 D Ur Specific [place] 1.010 Urine Protein Negative Urine Glucose (UA) Negative Urine Ketones Negative Urine Blood Negative Urine Nitrite Negative Urine Bilirubin Negative Urine Urobilinogen 0.2 Ur Leukocyte Esterase Trace Urine WBC (Auto) 9 Urine RBC (Auto) 10 Urine Casts (Auto) 0 U Epithel Cells (Auto) 3 Urine Bacteria (Auto) 6 COVID-19 ([facility]) Not detected 12/18/19 12/18/19 08:35 08:35 WBC 4.9 RBC 5.09 Hgb 14.6 Hct 44.4 MCV 87.3 MCH 28.7 MCHC 32.9 RDW 15.5 Plt Count 121 L D MPV 9.6 Sodium 142 Potassium 4.1 Chloride 109 H Carbon Dioxide 26 Anion Gap 7 L BUN 10.2 Creatinine 0.8 Est GFR (CKD-EPI)AfAm 109.42 Est GFR (CKD-EPI)NonAf 94.41 Random Glucose 85 Calcium 8.6 Magnesium 2.2 Total Bilirubin 0.7 AST 45 H ALT 61 Alkaline Phosphatase 84 Troponin I Total Protein 5.9 L Albumin 3.1 L Urine Color Urine Appearance Urine pH Ur Specific [place] Urine Protein Urine Glucose (UA) Urine Ketones Urine Blood Urine Nitrite Urine Bilirubin Urine Urobilinogen Ur Leukocyte Esterase Urine WBC (Auto) Urine RBC (Auto) Urine Casts (Auto) U Epithel Cells (Auto) Urine Bacteria (Auto) COVID-19 ([facility]) HOSPITAL COURSE: 64 y/o male with htn, opiod dependence and pud admitted with epig/ruq abd pain; sono pos for gallstones but no other signs of acute cholecystitis. Pt was seen by both gi and surgery -- GI recommended HIDA scan which has not been done yet. In the meantime pt was seen by Surgery who belives his symptoms are more s/w PUD and recommends follow up as outpt with his GI. Pt was recommended for discharge by surgery and will be kept on augmentin until HIDA scan done as outpt. Pt wants to leave tonight Date of Admission:12/17/19 Date of Discharge: 12/18/19 Minutes to complete discharge: 38 Discharge Summary Problems reviewed: Yes Reason For Visit: CHOLECYSTITIS; MULTIPLE GALLSTONES Current Active Problems Cholecystitis (Acute) Gallstones (Acute) - Instructions Diet, Activity, Other Instructions: lowfat diet Referrals: Zane Riddle [Primary Care Provider] - Disposition: HOME - Home Medications Comprehensive Discharge Medication List: Ambulatory Orders Lisinopril [Prinivil] 10 mg PO DAILY 12/16/19 Omeprazole 20 mg PO BID 12/16/19 Methadone [Dolophine -] 10 mg PO DAILY PRN 12/17/19 Amoxicillin/Potassium Clav [Augmentin 875-125 Tablet] 1 each PO BID 10 Days #20 tablet 12/18/19 Problem List - Problems (1) Epigastric pain Code(s): R10.13 - EPIGASTRIC PAIN This patient is new to me today: Yes Date on this admission: 12/18/19 Emergency Visit: Yes ED Registration Date: 12/17/19 Care time: The patient presented to the Emergency Department on the above date and was hospitalized for further evaluation of their emergent condition. Critical Care patient: No - Discharge Referral Referred to [facility] Med P.C.: No
[2019-12-18 18:46] VITALS: BP 103/63; PULSE 43; TEMP 97.7
--- NOTE | 2019-12-18 19:09 | CONS ---
DATE OF CONSULTATION: 12/18/2019 REASON FOR CONSULTATION: Cholelithiasis. This is an emergency room consultation requested by emergency room physician. BRIEF HISTORY: A 64-year-old male with history of peptic ulcer disease, who was told he had several ulcers the size of a quarter, who has been noncompliant on proton pump inhibitor therapy. Patient presented to the hospital complaining of epigastric abdominal pain radiating to his back. He left AMA and then returned to the hospital. He was found to have gallstones and was admitted for possible cholecystitis and request was made for surgical evaluation. His past medical history is significant for COPD, hypertension, peptic ulcer disease, opioid abuse in the past. He has had cornea injury from zoster. His past surgical history is nil. SOCIAL HISTORY: Positive for tobacco, he has been encouraged to quit. Negative for alcohol. He has allergies to CODEINE. His home medications include lisinopril, Prilosec, which he states he is not taking because it does not work, and methadone. REVIEW OF SYSTEMS: General: Denies fatigue or malaise. Cardiac: Denies chest pain or palpitations. Respiratory: Denies shortness of breath or wheeze. Gastrointestinal: States he has epigastric pain that is burning in nature, radiating to his back, but feels better since he has been in the hospital. He denies nausea, denies vomiting. He is hungry. He denies right upper quadrant pain. Genitourinary: Denies dysuria. Musculoskeletal: Denies joint pain. Psychiatric: Denies anxiety, depression, hearing voices. PHYSICAL EXAMINATION: General: This is an obese 64-year-old male in no distress. Vital Signs: He is afebrile. His vital signs are stable. HEENT: Head is normocephalic. Sclerae are anicteric. Neck: Supple. Chest: Clear. Abdomen: Soft. He has a ventral hernia, which is reducible and nontender. He has no right upper quadrant tenderness. He has mild epigastric tenderness on deep palpation. Extremities: His extremities have no edema. On review of his laboratories, white blood cell count is 4.9. His chemistries are unremarkable. He currently has normal LFTs and he had mildly elevated transaminases on admission. His COVID test is negative. On review of his imaging, he had an ultrasound done, which shows gallstones with mild thickening of the gallbladder without evidence of pericholecystic free fluid. He also had a CAT scan of his abdomen and pelvis on December 15. On that study, he had findings suspicious for acute cholecystitis. The gallbladder was noted to be distended, thick-walled, with trace fluid. ASSESSMENT: This is a 64-year-old male with a burning epigastric pain radiating to his back. He has ultrasound findings showing gallstones, with CAT scan findings from earlier more suspicious for acute cholecystitis. On exam, he has epigastric tenderness and not right upper quadrant tenderness. He is currently nontoxic with a normal white blood cell count. Clinically this is either acute cholecystitis that has rapidly responded to Zosyn antibiotic, or this is peptic ulcer disease responding to Protonix. Patient does not appear to be toxic and require hospitalization at this point. I believe it would be reasonable for him to be discharged on a 5-day course of Augmentin with a prescription for Protonix. He can follow up with his customer service advocate, Dr. Harshal Gonzales. He likely would benefit from an endoscopy to reevaluate his peptic ulcer disease. If it is felt that his symptoms are likely gallbladder in nature, then he can follow with me to schedule elective surgery. DO ESME FERGUSON/[id number]
--- NOTE | 2019-12-19 10:03 | EKG ---
Test Reason : Blood Pressure : / mmHG Vent. Rate : 044 BPM Atrial Rate : 044 BPM P-R Int : 174 ms QRS Dur : 078 ms QT Int : 492 ms P-R-T Axes : 048 -20 011 degrees QTc Int : 420 ms MARKED SINUS BRADYCARDIA WITH PREMATURE ATRIAL COMPLEXES ABNORMAL ECG WHEN COMPARED WITH ECG OF 18-DEC-2019 01:02, PREMATURE ATRIAL COMPLEXES ARE NOW PRESENT ST ELEVATION NOW PRESENT IN LATERAL LEADS Confirmed by Kaitlin Valentin ([id number]) on 12/19/2019 10:02:43 AM Referred By: Confirmed By:Kaitlin Valentin
--- NOTE | 2019-12-19 10:11 | EKG ---
Test Reason : Blood Pressure : / mmHG Vent. Rate : 049 BPM Atrial Rate : 049 BPM P-R Int : 174 ms QRS Dur : 082 ms QT Int : 430 ms P-R-T Axes : 053 -23 006 degrees QTc Int : 388 ms SINUS BRADYCARDIA OTHERWISE NORMAL ECG WHEN COMPARED WITH ECG OF 16-DEC-2019 13:31, NO SIGNIFICANT CHANGE WAS FOUND Confirmed by Kaitlin Valentin ([id number]) on 12/19/2019 10:11:39 AM Referred By: Confirmed By:Kaitlin Valentin
== END 2019-12-18 19:45 | disposition home or self-care (01) ==
LOC: JER 10:01 → JERBED 11:38 → J5S 16:33
PROVIDERS: ADMIT Internal Medicine; ATTEND Internal Medicine
DX: K80.20 Calculus of gallbladder without cholecystitis without obstruction (principal); F11.20 Opioid dependence, uncomplicated; K27.9 Peptic ulcer, site unspecified, unspecified as acute or chronic, without hemorrhage or perforation; J44.9 Chronic obstructive pulmonary disease, unspecified; F17.210 Nicotine dependence, cigarettes, uncomplicated; R74.0 Nonspecific elevation of levels of transaminase and lactic acid dehydrogenase [LDH]
CPT/HCPCS: 36415; 76705-TC; 80053; 81003; 82248; 82550; 83605; 83690; 83735; 84100; 84484; 85025; 85027; 85610; 85730; 86850; 86900; 86901; 87040; 93005; 93010; 99285-25; J0131; J1644; U0003

== ENCOUNTER 2021-07-03 14:05 | Emergency (ER) | payer OTHER ==
[2021-07-03 14:18] VITALS: BP 150/99; PULSE 93; TEMP 97.9; BMI 26.9
[2021-07-03] MEDS ORDERED: ACETAMINOPHEN 500 MG TABLET (FP) PO ONE (14:47)
[2021-07-03] MEDS ORDERED: ACETAMINOPHEN 500 MG TABLET (FP) ONE (14:50)
== END 2021-07-03 15:29 | disposition home or self-care (01) ==
LOC: JERFT 14:05
DX: S93.401A Sprain of unspecified ligament of right ankle, initial encounter (principal); X50.0XXA Overexertion from strenuous movement or load, initial encounter
CPT/HCPCS: 73610-TC-RT-FY; 73630-TC-RT-FY; 99283-25